=== PATIENT | male | born 1960 | race Caucasian/White ===

== ENCOUNTER 2017-02-23 20:08 | Inpatient (IN) | payer MEDICARE ==
[~2017-02-23] VITALS: Ht 172.7 cm; Wt 57.1 kg
[~2017-02-23 20:08] MED LIST: BENZ0.5T6 PO; PALI234D IM; PALI6 PO
[2017-02-23 20:48] LABS: GLUCOSE,POINT OF CARE 121 MG/DL (70-110)
[2017-02-23 21:23] LABS: BASOPHILS # (AUTO) 0.02 K/uL (0.00-0.20); BASOPHILS % (AUTO) 0.2 % (0.0-2.0); EOSINOPHILS # (AUTO) 0.11 K/uL (0.00-0.70); EOSINOPHILS % (AUTO) 1.17 % (1.0-6.0); HEMATOCRIT 35.8 % (41-53); HEMOGLOBIN 12.1 g/dL (13.5-17.5); LYMPHOCYTES # (AUTO) 1.2 K/uL (1.0-4.8); LYMPHOCYTES % (AUTO) 13.3 % (22.0-44.0); MEAN CORPUSCULAR HGB CONC 33.8 G/dL (31.0-37.0); MEAN CORPUSCULAR VOLUME 95 fL (80-100); MONOCYTES # (AUTO) 0.6 K/uL (0.1-1.0); MONOCYTES % (AUTO) 6.6 % (2.0-9.0); NEUTROPHILS # (AUTO) 7.1 K/uL (1.8-7.7); NEUTROPHILS % (AUTO) 78.7 % (40.0-70.0); PLATELET COUNT (AUTO) 271 K/uL (150-450); RED BLOOD CELL COUNT(AUTO) 3.79 MIL/uL (4.50-5.90)
[2017-02-23 21:29] LABS: ANION GAP 9 mmol/L (8-16); CALCIUM, TOTAL 8.5 mg/dL (8.8-10.5); CARBON DIOXIDE 27 mmol/L (22-29); CHLORIDE 105 mmol/L (98-107); CREATININE 0.83 mg/dL (0.60-1.30); GLOMERULAR FILTR. RATE CALC > 60 mL/min (>60); POTASSIUM 3.7 mmol/L (3.5-5.1); SODIUM SERUM 141 mmol/L (136-145); UREA NITROGEN, BLOOD 23 mg/dL (7-18)
[2017-02-23 21:35] LABS: ALANINE AMINOTRANSFERASE 62 U/L (12-78); ALBUMIN 3.2 g/dL (3.4-5.0); ASPARTATE AMINOTRANSFERASE 83 U/L (15-37); BILIRUBIN,TOTAL 0.5 mg/dL (0.1-1.0); TOTAL PROTEIN, SERUM 6.7 g/dL (6.4-8.2)
[2017-02-23] MEDS ORDERED: LORazepam 2 MG/ML VIAL IM ONE (23:45)
[2017-02-23] MEDS ORDERED: HALOPERIDOL LACTATE 5 MG/ML VIAL IM ONE (23:45)
[2017-02-23] MEDS ORDERED: DiphenhydrAMINE HCL 50 MG/ML VIAL IM ONE (23:45)
[2017-02-24] MEDS ORDERED: ZOLPIDEM TARTRATE 10 MG TABLET PO PRN
[2017-02-25] MEDS: HALOPERIDOL 5 MG TABLET PO PRN (16:25)
[2017-02-25] MEDS: LORazepam 2 MG TABLET PO PRN (16:25)
[2017-02-25 16:26] VITALS: BP 111/72
[2017-02-25] MEDS ORDERED: INFLUENZA VIRUS VACCINE QVS 2017-18 (3YR+)/PF 60 MCG/0.5 ML SYRINGE IM ONE (17:45)
[2017-02-26 06:43] VITALS: BP 127/77
[2017-02-26 09:10] VITALS: BP 135/77
[2017-02-26] MEDS ORDERED: ACETAMINOPHEN 325 MG TABLET PO PRN ×2 (09:15→15:30)
[2017-02-26] MEDS ORDERED: MAGNESIUM HYDROXIDE SUSPENSION 30 ML UDCUP PO PRN ×2 (09:15→15:30)
[2017-02-26] MEDS ORDERED: MAG HYDROX/AL HYDROX/SIMETH ES 30 ML SUSPENSION UDCUP PO PRN ×2 (09:15→15:30)
[2017-02-26] MEDS ORDERED: LOPERAMIDE HCL 2 MG CAPSULE PO PRN ×2 (09:15→15:30)
[2017-02-26] MEDS ORDERED: BENZOCAINE/MENTHOL LOZENGE MM PRN (09:15)
[2017-02-26] MEDS ORDERED: ALBUTEROL SULFATE HFA 90 MCG/PUFF 8 GM INHALER IH PRN (09:15)
[2017-02-26] MEDS ORDERED: PETROLATUM,WHITE 71 GM JELLY TP PRN (09:15)
[2017-02-26] MEDS ORDERED: CloNIDine HCL 0.1 MG TABLET PO PRN (09:15)
[2017-02-26] MEDS ORDERED: BACITRACIN 28.4 GM OINTMENT TP PRN (09:15)
[2017-02-26] MEDS ORDERED: IBUPROFEN 600 MG TABLET PO PRN (09:15)
[2017-02-26] MEDS ORDERED: ONDANSETRON HCL 4 MG TABLET PO PRN (09:15)
[2017-02-26] MEDS: LORazepam 2 MG TABLET PO PRN ×2 (09:42→20:43)
[2017-02-26] MEDS: HALOPERIDOL 5 MG TABLET PO PRN (09:42)
[2017-02-26] MEDS ORDERED: PROMETHAZINE HCL 25 MG TABLET PO PRN (15:30)
[2017-02-26] MEDS ORDERED: TUBERCULIN, PURIFIED PROTEIN DERIVATIVE 5 TU/0.1 ML SYG ID ONE (15:30)
[2017-02-26] MEDS ORDERED: HydrOXYzine PAMOATE 50 MG CAPSULE PO PRN (15:30)
[2017-02-26] MEDS ORDERED: PALIPERIDONE 3 MG ER TABLET PO PRN (15:30)
[2017-02-26] MEDS ORDERED: PALIPERIDONE PALMITATE 234 MG/1.5 ML SYRINGE IM ONE (15:30)
[2017-02-26] MEDS ORDERED: GuaiFENesin/D-METHORPHAN [SUGAR-FREE] 200-20MG/10 ML SYRUP UDCUP PO PRN (15:30)
[2017-02-26 16:00] VITALS: BP 128/78
[2017-02-26] MEDS: THIAMINE HCL 100 MG TABLET PO SCH (17:00)
[2017-02-26] MEDS: PALIPERIDONE 3 MG ER TABLET PO SCH (20:42)
[2017-02-27 02:31] VITALS: BP 134/93
[2017-02-27 08:29] VITALS: BP 112/67
[2017-02-27] MEDS: MULTIVITAMINS WITH MINERALS, THERAPEUTIC TABLET PO SCH (09:00)
[2017-02-27] MEDS: THIAMINE HCL 100 MG TABLET PO SCH ×2 (09:11→16:13)
[2017-02-27] MEDS: FOLIC ACID 1 MG TABLET PO SCH (09:12)
[2017-02-27 16:00] VITALS: BP 133/85
[2017-02-27] MEDS: LORazepam 2 MG TABLET PO PRN ×2 (16:13→20:31)
[2017-02-27] MEDS ORDERED: PALI3 PO (17:47)
[2017-02-27] MEDS ORDERED: NALT50TA6 PO (17:55)
[2017-02-27] MEDS: PALIPERIDONE 3 MG ER TABLET PO SCH (20:30)
[2017-02-28 06:02] VITALS: BP 130/82
[2017-02-28 08:29] VITALS: BP 136/86
[2017-02-28] MEDS: FOLIC ACID 1 MG TABLET PO SCH (08:34)
[2017-02-28] MEDS: LORazepam 2 MG TABLET PO PRN (08:34)
[2017-02-28] MEDS: MULTIVITAMINS WITH MINERALS, THERAPEUTIC TABLET PO SCH (08:34)
[2017-02-28] MEDS: THIAMINE HCL 100 MG TABLET PO SCH (08:34)
[2017-02-28] MEDS ORDERED: NALTREXONE HCL 50 MG TABLET PO SCH (09:00)
[2017-02-28] MEDS ORDERED: NALT50TA6 PO (09:37)
[2017-02-28] MEDS ORDERED: PALI3 PO (09:41)
[2017-03-02] MEDS ORDERED: PALIPERIDONE PALMITATE 156 MG/ML SYRINGE IM ONE (09:00)
== END 2017-02-28 13:20 | disposition home or self-care (01) | DRG 885 ==
LOC: EMS 20:10 → B3A 02-25 14:50
PROVIDERS: ADMIT Psychiatry & Neurology Child & Adolescent Psychiatry; ATTEND Psychiatry & Neurology Psychiatry
DX: F20.0 Paranoid schizophrenia (principal); B18.2 Chronic viral hepatitis C; R45.850 Homicidal ideations; R45.851 Suicidal ideations; Z68.1 Body mass index [BMI] 19.9 or less, adult; F10.10 Alcohol abuse, uncomplicated; F15.10 Other stimulant abuse, uncomplicated; F17.210 Nicotine dependence, cigarettes, uncomplicated; J44.9 Chronic obstructive pulmonary disease, unspecified; K59.00 Constipation, unspecified; X58.XXXA Exposure to other specified factors, initial encounter; S00.83XA Contusion of other part of head, initial encounter; S41.111A Laceration without foreign body of right upper arm, initial encounter; S51.011A Laceration without foreign body of right elbow, initial encounter; Z59.0 Homelessness; Z78.1 Physical restraint status; Z81.8 Family history of other mental and behavioral disorders; Z91.19 Patient's noncompliance with other medical treatment and regimen; Z71.41 Alcohol abuse counseling and surveillance of alcoholic; Z71.51 Drug abuse counseling and surveillance of drug abuser; Z28.21 Immunization not carried out because of patient refusal; Y93.89 Activity, other specified; Z71.6 Tobacco abuse counseling; Y92.89 Other specified places as the place of occurrence of the external cause; Y99.8 Other external cause status
CPT/HCPCS: 82962; 87081; 99285; G0480; J1200; J1630; J2060